=== PATIENT | female | born 1955 | race African-American/Black ===

== ENCOUNTER → 2017-07-07 | Outpatient (CLI) | payer OTHER ==
[~2017-07-07] MED LIST: ALBUTEROL17 G1 INH; BENTYL10 MG PO; BENZONATATE PO; FLEXERIL10 MG PO; LORTAB 5/500 TA1 TA1 PO; NAPROSYN375 MG PO; PERCOCET 10/3251 TAB PO; PHENERGAN PO; PHENERGAN W/CO120 ML PO; PHENERGAN25 MG PO; PRILOSEC20 MG PO; PROTONIX PO; RANITIDINE HCL150 M1 PO; TOPROL XL PO; VICODIN 5/1 TAB 5/50 DOB; VOLTAREN75 MG PO; WELLBUTRIN PO; ZITHROMAX PO; ZOLOFT PO; ZOLOFT100 MG PO; [UNRECOGNIZED DRUG - REMARK] PO
--- NOTE | ~2017-07-07 | CR282 ---
[facility] A Service of [facility] & [facility] RADIOLOGY TEXT RESULTS PATIENT: DEVIN HOWARD LOCATION: [facility] : 59 UNIT #: [id number] AGE: [address]: Kiana Truong MD SEX: F ORDER DR: [id number] [facility] [address] [place], [place] [address] [id number] O MR#: [id number] Acc #: [id number] NAME: DEVIN HOWARD : 1955 SEX: F STUDY DATE/TIME: 07/07/2017 11:45 UNIT: [facility] ROOM: STUDY DESCRIPTION: CR Wrist Min 3 View Rt Attending Physician: Kiana Truong M.D., [facility] Referring Physician: Kiana Truong M.D., [facility] Ordering Physician: Kiana Truong M.D., [facility] Primary Care Physician: Ashwin Cast M.D. MEDICAL IMAGING REPORT This report is preliminary unless electronic signature is present EXAM Three views right wrist. Date: 07/07/2017 HISTORY 61-year-old female with right wrist pain and swelling after falling on 06/11/2017. Previous history of wrist fracture. FINDINGS Two orthopedic anchors are demonstrated within the wrist, including within the scaphoid, capitate, lunate bones in the distal radial metaphysis. There is mild radiocarpal joint space narrowing. Sclerotic features are demonstrated within the scaphoid and lunate bones likely representing sequelae of remote trauma. Mild degenerative change of the first carpometacarpal junction and the first metacarpal phalangeal joint. Mild triangular fibrocartilage calcification. IMPRESSION Degenerative and postsurgical change in the right wrist as described. No acute right wrist findings. Dictated by... Haley Jaimes M.D. THIS IS AN ELECTRONICALLY VERIFIED REPORT Haley Jaimes M.D. at 07/08/2017 9:39 AM LLH/jair TD: 07/07/2017 15:57 JOB #: [id number] MEDICAL IMAGING REPORT [facility]. [facility] A Service of [facility] & [facility] RADIOLOGY TEXT RESULTS PATIENT: DEVIN HOWARD [id number] : [birth year] UNIT #: [id number] AGE: [address]: Kiana Truong MD SEX: F ORDER DR: Page 1 of 1 COPY
== END | disposition home or self-care (01) ==
LOC: CRAD 11:19
DX: S39.92XA Unspecified injury of lower back, initial encounter (principal); M19.031 Primary osteoarthritis, right wrist; Z98.890 Other specified postprocedural states
CPT/HCPCS: 73110